=== PATIENT | male | born 1975 | race Caucasian/White ===

== ENCOUNTER 2023-12-11 07:33 | Emergency (ER) | payer OTHER ==
[~2023-12-11] VITALS: Ht 185.4 cm; Wt 97.5 kg
[2023-12-11] MEDS ORDERED: ATROPINE SULFATE ONE ×2 (07:38→08:41)
[2023-12-11] MEDS: ATROPINE SULFATE IV STA ×2 (07:46→08:45)
[2023-12-11 07:50] VITALS: BP 138/85; PULSE 39; RESP 18; TEMP 97.8; O2SAT 97
[2023-12-11] MEDS: NS 1000ML 1,000 ML IV ONE (07:50)
[2023-12-11] MEDS ORDERED: NS 1000ML 1,000 ML ONE ×3 (07:57→09:21)
[2023-12-11] MEDS: LACTATED RINGERS 1,000 ML IV SCH (08:05)
[2023-12-11 08:08] LABS: BASOPHIL % 0.2 % (0.2-1.2); EOSINOPHIL # 0.4 10^3/uL (0.0-0.2); EOSINOPHIL % 5.5 % (0.0-5.0); HEMATOCRIT(ML) 39.1 % (37.0-53.0); HEMOGLOBIN 12.6 g/dL (13.9-16.3); IG % 0.2 % (0.00-0.50); LYMPHOCYTES # 2.81 10^3/uL1 (1.0-4.8); MEAN CORP HGB CONCENTRATION 32.2 g/dL (33-36.5); MEAN CORP VOLUME 93.1 fL (78-100); MONOCYTES # 0.6 10^3/uL (0.3-0.8); NEUTROPHIL # 2.8 10^3/uL (1.8-7.7); NEUTROPHILS % 42.1 % (41.0-85.0); RED BLOOD CELL 4.2 10^6/uL (4.50-5.90); RED CELL DISTRIBUTION WIDTH 13.1 % (11.5-14.5); WHITE BLOOD CELL 6.5 10^3/uL (4.5-11.0)
[2023-12-11 08:15] VITALS: BP 98/47; PULSE 55; RESP 18; O2SAT 97
[2023-12-11 08:27] LABS: PROTHROMBIN PROTIME 10.5 SEC (9.7-11.6)
[2023-12-11 08:45] VITALS: BP 97/45; PULSE 53; RESP 18; O2SAT 98
[2023-12-11 08:46] LABS: ALBUMIN(ML) 3.3 g/dL (3.4-5.0); ALBUMIN/GLOBULIN RATIO 1.375; ANION GAP 13.2; BUN/CREATININE RATIO 15.38 (10.0-20.0); CALCIUM 8.6 mg/dL (8.4-10.5); CARBON DIOXIDE 26.1 mmol/L (20.0-32); CREATININE SERUM 1.17 mg/dL (0.59-1.40); POTASSIUM 4.3 mmol/L (3.6-5.2)
[2023-12-11 09:00] VITALS: BP_SYST 67; PULSE 46; RESP 18; O2SAT 97
[2023-12-11] MEDS ORDERED: LEVOPHED IV ONE (09:06)
[2023-12-11] MEDS ORDERED: [UNRECOGNIZED DRUG - OTHER] IV ONE (09:06)
[2023-12-11] MEDS: [UNRECOGNIZED DRUG - OTHER] IV SCH (09:15)
[2023-12-11] MEDS: LEVOPHED IV SCH (09:15)
[2023-12-11] MEDS: ZOFRAN IV STA (09:25)
[2023-12-11] MEDS ORDERED: ZOFRAN ONE (09:25)
[2023-12-11 09:43] VITALS: BP 98/53; PULSE 56; RESP 18; O2SAT 96
== END 2023-12-11 08:58 | disposition short-term general hospital (02) ==
LOC: ER 07:33
DX: I49.5 Sick sinus syndrome (principal); I48.20 Chronic atrial fibrillation, unspecified
CPT/HCPCS: 99291; 96374; 96375; 96361; 96376; 71045; 80053; 85025; 82948; 36415; 84484; 82550; 85610; 85730; 83735; 93005 ×2; J7030 ×3; J0461 ×2; J2405